=== PATIENT | female | born 1985 | race African-American/Black ===

== ENCOUNTER 2016-08-02 21:58 | Emergency (ER) | payer OTHER ==
[~2016-08-02 21:58] MED LIST: DEPAKOTE500 MG PO; DIFLUCAN150 M1 PO; DIVALPROEX SOD500 M1 PO; ESCITALOPRAM20 MG PO; FLAGYL500 MG PO; HYDROXYZINE PAM25 MG PO; LEXAPRO 20MG M20 MG PO; MIRENA52 MG; VISTARIL25 MG PO
--- NOTE | 2016-08-02 22:03 | ED PSYCHIATRIC COMPLAINT ---
History of Present Illness General Chief Complaint: Psychiatric Related Complaint Stated Complaint: BIBA +SI Source: patient, EMS Exam Limitations: no limitations Vital Signs & Intake/Output Vital Signs & Intake/Output Vital Signs Date Time Temp Pulse Resp B/P Pulse O2 O2 Flow FiO2 Ox Delivery Rate 08/03 0650 98.0 70 20 118/70 98 08/03 0336 100 Room Air 08/02 2209 97.3 71 20 121/77 98 Room Air Allergies Coded Allergies: No Known Allergies (08/31/15) Reconcile Medications Divalproex Sodium 500 MG TCP 1 TAB PO BID MENTAL HEALTH (Reported) Divalproex Sodium (Depakote) 500 MG TCP 1 TAB PO BID BIPOLAR Escitalopram Oxalate 20 MG TAB 1 TAB PO DAILY MENTAL HEALTH (Reported) Escitalopram Oxalate (Lexapro 20MG) 20 MG TAB 1 TAB PO DAILY DEPRESSION Fluconazole (Diflucan) 150 MG TABLET 1 TAB PO ONCE YEAST Hydroxyzine Pamoate (Hydroxyzine Griselda) 25 MG CAP 1 CAP PO QPM ANXIETY ( Reported) Hydroxyzine Pamoate (Vistaril) 25 MG CAP 1 CAP PO DAILY anxiety Levonorgestrel (Mirena) 52 MG ICR CONTROL (Reported) Metronidazole (Flagyl) 500 MG TABLET 1 TAB PO BID INFECTION Triage Nurses Notes Reviewed? yes Onset: Gradual Duration: week(s):, waxing and waning Timing: recent history Severity: moderate Associated Symptoms: anxiety, suicidal ideation HPI: 31 yo woman presents via ambulance after telling police, "I don't want to live like this.... I want to ." She states that she has been homeless for more than 1 year, that she is depressed. She denies drug or alcohol use. She states that she does not have a plan. She states that she has taken medications in the past for psychiatric illness, but does not take any medications now. She denies homicidality and hallucinations. "I just want to sleep, and not feel this way." (REGULO SARAH,RIVER Conley) Past History Travel History Traveled to [place] past 21 day No Medical History Any Pertinent Medical History? 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 No (REGUOL SARAH,RIVER Conley) Review of Systems Review of Systems Constitutional: Reports: no symptoms. EENTM: Reports: no symptoms. Respiratory: Reports: no symptoms. Cardiovascular: Reports: no symptoms. GI: Reports: no symptoms. Genitourinary: Reports: no symptoms. Musculoskeletal: Reports: no symptoms. Skin: Reports: no symptoms. Neurological/Psychological: Reports: no symptoms. Hematologic/Endocrine: Reports: no symptoms. Immunologic/Allergic: Reports: no symptoms. All Other Systems: Reviewed and Negative (REGULO SARAH,RIVER Conley) Physical Exam Physical Exam General Appearance: well developed/nourished, mild distress Head: atraumatic Eyes: Bilateral: normal appearance, PERRL, EOMI. Ears, Nose, Throat: normal pharynx, normal ENT inspection, hearing grossly normal Neck: normal inspection, supple Respiratory: normal breath sounds Cardiovascular: regular rate/rhythm Gastrointestinal: soft, non-tender Extremities: normal range of motion Neurological/Psychiatric: agitated, anxious, oriented x 3 Appearance/Memory/Insight: disheveled Behavoir/Eye Contact/Speech: cooperative Thoughts/Hallucinations: normal thought pattern Skin: intact, normal color, warm/dry SAD PERSONS SAD PERSONS Response Value Depression/Hopelessness? yes 2 Single//? yes 1 Social Support? has no support 1 Total 4 SAD PERSONS Done? yes (REGULO SARAH,RIVER Conley) Progress Differential Diagnosis: DEPRESSION FOR POOR FOR Roxie'S ADJUSTMENT DISORDER VERSUS OTHER Plan of Care: Orders Procedure Date/time Status Regular Diet 08/03 B Active Add-on Test (ER Only) 08/03 0820 Active Continuous Observation Monitor 08/02 2230 Active ED CRISIS PSYCH CONSULT 08/02 2230 Active URINE 08/02 2219 Active URINE DRUG SCREEN FOR ER ONLY 08/02 2202 Complete ETHANOL 08/02 2202 Complete COMPREHENSIVE METABOLIC PANEL 08/02 2202 Complete CBC WITHOUT DIFFERENTIAL 08/02 2202 Complete Laboratory Tests 08/02/16 2220: Urine Opiates Screen < 100.00, Methadone Screen < 40, Barbiturate Screen < 60, Ur Phencyclidine Scrn 67.60 H, Amphetamines Screen 103, U Benzodiazepines Scrn < 85, Urine Cocaine Screen < 50, Urine Cannabis Screen > 80.00 H, Urine Test Pending 08/02/16 2217: Anion Gap 9, Estimated GFR > 60, BUN/Creatinine Ratio 12.9, Glucose 105 H, Calcium 9.2, Total Bilirubin 0.3, AST 12 L, ALT 26, Alkaline Phosphatase 54, Total Protein 7.1, Albumin 3.8, Globulin 3.3, Albumin/Globulin Ratio 1.2, CBC w Diff NO MAN DIFF REQ, RBC 4.92, MCV 74.9 L, MCH 23.9 L, RDW 15.5 H, MPV 10.3, Gran % 48.1, Lymphocytes % 43.4, Monocytes % 6.4, Eosinophils % 1.4, Basophils % 0.7, Absolute Granulocytes 5.1, Absolute Lymphocytes 4.6 H, Absolute Monocytes 0.7 H, Absolute Eosinophils 0.1, Absolute Basophils 0.1, PUBS MCHC 31.9 L, Serum Alcohol < 10.0 Hand-Off Endorsed To: LINDSEY SARAH,IAN Alanis Endorsed Time: 0700 Pending: consult (REGULO SARAH,RIVER Conley) Comments: 08/03/2016 8:29:14 AM patient signed out to 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 Patient has been evaluated by the care clinician and felt stable for outpatient management. (LINDSEY SARAH,IAN Alanis) Departure Departure Disposition: STILL A PATIENT Condition: Stable Departure Forms: Customer Survey General Discharge Information (REGULO SARAH,RIVER Conley) Departure Clinical Impression Primary Impression: Depression Secondary Impressions: Homelessness, Hopelessness Referrals: [facility] PATIENT HAS NO PRIMARY CARE DR (PCP/Family) Additional Instructions: Continue your current medications. Please follow-up with the connection in [place] on August 12. Notify your primary care doctor of this emergency Department visit and treatment plan (if you do not have a doctor currently please contact the [facility]). Return if any concerns or sudden worsening. (LINDSEY SARAH,IAN Alanis)
[2016-08-02 22:24] LABS: ABSOLUTE BASOPHIL COUNT 0.1 /CUMM (0.0-0.2); ABSOLUTE EOSINOPHIL COUNT 0.1 /CUMM (0.0-0.7); ABSOLUTE GRANULOCYTE CT 5.1 /CUMM (1.4-6.5); ABSOLUTE MONOCYTE COUNT 0.7 /CUMM (0.10-0.60); BASOPHIL % 0.7 % (0.0-2.0); EOSINOPHIL % 1.4 % (0-5); GRANULOCYTE % 48.1 % (42.2-75.2); HEMATOCRIT 36.8 % (37-47); MEAN CORPUSCULAR HGB 23.9 PG (27.0-31.0); MEAN CORPUSCULAR HGB CONC 31.9 G/DL (33.0-37.0); MEAN CORPUSCULAR VOLUME 74.9 FL (81.0-99.0); MEAN PLATELET VOLUME 10.3 FL (7.4-10.4); PLATELET COUNT 202 /CUMM (130-400); RBC DISTRIBUTION WIDTH 15.5 % (11.5-14.5); RED BLOOD CELL CT 4.92 /CUMM (4.20-5.40); WHITE BLOOD CELL COUNT 10.7 /CUMM (4.8-10.8)
[2016-08-02 22:27] LABS: ABSOLUTE LYMPH COUNT 4.6 /CUMM (1.2-3.4)
[2016-08-03 06:50] VITALS: BP 118/70
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
== END 2016-08-03 09:03 ==
LOC: ERH 21:58
PROVIDERS: Pediatrics
DX: F32.9 Major depressive disorder, single episode, unspecified (principal); Z59.0 Homelessness; Z91.14 Patient's other noncompliance with medication regimen
CPT/HCPCS: 80307; 81025; G0463; G0480